=== PATIENT | male | born 1990 | race Caucasian/White ===

== ENCOUNTER 2017-12-25 17:15 | Emergency (ER) | payer OTHER ==
[~2017-12-25] VITALS: Ht 175.3 cm; Wt 83.9 kg
[~2017-12-25 17:15] MED LIST: HYDACE5 PO; IBUP200 PO; NAPR550 PO; RXNAPNA550 PO
== END 2017-12-25 18:54 | disposition home or self-care (01) ==
LOC: ER 17:15
DX: S00.03XA Contusion of scalp, initial encounter (principal); V86.69XA Passenger of other special all-terrain or other off-road motor vehicle injured in nontraffic accident, initial encounter
CPT/HCPCS: 70450; 72125; 99284-25

== ENCOUNTER 2019-09-13 00:41 | Emergency (ER) | payer OTHER ==
[~2019-09-13] VITALS: Ht 167.6 cm; Wt 77.1 kg
== END 2019-09-13 01:28 | disposition home or self-care (01) ==
LOC: ER 00:41
DX: J11.1 Influenza due to unidentified influenza virus with other respiratory manifestations (principal); F17.200 Nicotine dependence, unspecified, uncomplicated
CPT/HCPCS: 99283